=== PATIENT | female | born 1950 | race Caucasian/White ===

== ENCOUNTER 2016-12-11 14:38 | Emergency (ER) | payer OTHER ==
[~2016-12-11] VITALS: Ht 170.2 cm; Wt 76.4 kg
[2016-12-11 17:55] VITALS: BP 156/108
== END 2016-12-11 17:55 | disposition home or self-care (01) ==
LOC: ED 14:38
DX: L03.116 Cellulitis of left lower limb (principal); I10 Essential (primary) hypertension; Z79.899 Other long term (current) drug therapy
CPT/HCPCS: Q0092

== ENCOUNTER 2017-05-20 17:03 | Emergency (ER) | payer OTHER ==
[2017-05-20 18:46] LABS: BASOPHIL % 1.3 % (0-2); PLATELET COUNT 236 x10^3mcL (130-400); RED CELL DISTRIBUTION WIDTH 13.4 % (11.5-14.5)
[2017-05-20 18:58] LABS: CALCIUM 9.2 mg/dL (8.5-10.1); CARBON DIOXIDE 31.6 mmol/L (21-32); CREATININE SERUM 1.5 mg/dL (0.6-1.0); POTASSIUM SERUM 3.5 mmol/L (3.5-5.1)
[2017-05-20 19:03] LABS: ALBUMIN 3.6 g/dL (3.4-5.0); BILIRUBIN TOTAL 0.58 mg/dL (0.20-1.00); TOTAL PROTEIN, SERUM 7.3 g/dL (6.4-8.2)
[2017-05-20 21:51] VITALS: BP 115/68
== END 2017-05-20 21:51 | disposition home or self-care (01) ==
LOC: ED 17:03
PROVIDERS: Emergency Medicine
DX: E86.0 Dehydration (principal); N17.9 Acute kidney failure, unspecified; K80.20 Calculus of gallbladder without cholecystitis without obstruction; I10 Essential (primary) hypertension; Z85.038 Personal history of other malignant neoplasm of large intestine; Z90.49 Acquired absence of other specified parts of digestive tract
CPT/HCPCS: J2405; J7030

== ENCOUNTER 2017-06-17 21:37 | Emergency (ER) | payer OTHER ==
[2017-06-18 02:58] VITALS: BP 129/89
== END 2017-06-18 03:59 | disposition home or self-care (01) ==
LOC: ED 21:37
DX: M94.0 Chondrocostal junction syndrome [Tietze] (principal); I10 Essential (primary) hypertension; Z88.8 Allergy status to other drugs, medicaments and biological substances

== ENCOUNTER 2019-01-28 19:53 | Emergency (ER) | payer OTHER ==
[~2019-01-28] VITALS: Ht 170.2 cm; Wt 77.6 kg
[2019-01-28 20:10] VITALS: Ht 170.2 cm; Wt 77.6 kg
[2019-01-28 22:07] VITALS: BP 151/82
== END 2019-01-28 22:07 | disposition home or self-care (01) ==
LOC: ED 19:53
DX: S91.114A Laceration without foreign body of right lesser toe(s) without damage to nail, initial encounter (principal); I10 Essential (primary) hypertension; F41.9 Anxiety disorder, unspecified; F32.9 Major depressive disorder, single episode, unspecified; Z87.19 Personal history of other diseases of the digestive system; Z88.8 Allergy status to other drugs, medicaments and biological substances; W26.0XXA Contact with knife, initial encounter; Y93.89 Activity, other specified; Y92.89 Other specified places as the place of occurrence of the external cause; Y99.8 Other external cause status
CPT/HCPCS: J2001